=== PATIENT | female | born 1995 | race Two or more races ===

== ENCOUNTER 2022-06-17 19:30 | Emergency (ER) | payer BC ==
[2022-06-17] MEDS ORDERED: Sulfamethoxazole/Trimethoprim 800-160 MG Tab PO ONE (22:03)
[2022-06-17] MEDS ORDERED: Ketorolac 30 MG/ML SDV IM ONE (22:03)
== END 2022-06-17 23:06 | disposition home or self-care (01) ==
LOC: FB.ED 19:30
DX: N39.0 Urinary tract infection, site not specified (principal); E28.2 Polycystic ovarian syndrome; E66.9 Obesity, unspecified; Z68.39 Body mass index [BMI] 39.0-39.9, adult; Z88.5 Allergy status to narcotic agent
CPT/HCPCS: 81001; 81025; 87086; 87088; 87186; 96372; 99283; 99284; A9270-GY; J1885

== ENCOUNTER 2023-01-26 09:46 | Emergency (ER) | payer BC | END 2023-01-26 10:55 | disposition home or self-care (01) | LOC: FB.ED 09:46 | DX: N93.9 Abnormal uterine and vaginal bleeding, unspecified (principal); N94.6 Dysmenorrhea, unspecified; E66.9 Obesity, unspecified; Z68.41 Body mass index [BMI] 40.0-44.9, adult; Z79.899 Other long term (current) drug therapy | CPT/HCPCS: 81025; 99284 ==